=== PATIENT | female | born 1985 | race African-American/Black ===

== ENCOUNTER 2020-01-16 16:55 | Emergency (ER) | payer MEDICAID ==
[~2020-01-16] VITALS: Ht 167.6 cm; Wt 125.0 kg
[2020-01-16 17:52] VITALS: BP 130/85
[2020-01-16] MEDS ORDERED: ALBU2.5V8 IH (18:45)
--- NOTE | 2020-01-16 18:45 | PHYS DOC ---
Past Medical History Past Medical History: No Pertinent History Additional Past Medical Histor: ADHD (MELPK APRN) Past Surgical History: Other Additional Past Surgical Histo: CSECTION X2 (MELEPK Gasca APRN) Smoking Status: Current Every Day Smoker Alcohol Use: None (MELPK CARMEN) General Adult EDM: Chief Complaint: CHEMICAL EXPOSURE HPI: HPI: Patient is a 34 year old female who presents to the ED today complaining of chemical exposure. Patient states at 4 AM this morning she was cleaning her bathroom and mixed ammonia and bleach. She states she inhaled the fumes. She states throughout the day she has had some chest binding coughing and sore throat. Patient denies any shortness of breath. Denies any history of asthma or COPD. (MELEPK Gasca APRN) Review of Systems: Review of Systems: Constitutional: Denies fever or chills. [] Eyes: Denies change in visual acuity. [] HENT: Reports throat pain. Denies nasal congestion Respiratory: Reports chemical inhalation. Denies cough or shortness of tre ath. [] Cardiovascular: Denies chest pain or edema. [] GI: Denies abdominal pain, nausea, vomiting, bloody stools or diarrhea. [] : Denies dysuria. [] Musculoskeletal: Denies back pain or joint pain. [] Integument: Denies rash. [] Neurologic: Denies headache, focal weakness or sensory changes. [] Psychiatric: Denies depression or anxiety. [] (PK LEAL APRN) Heart Score: Risk Factors: Risk Factors: DM, Current or recent (<one month) smoker, HTN, HLP, family history of CAD, obesity. Risk Scores: Score 0 - 3: 2.5% MACE over next 6 weeks - Discharge Home Score 4 - 6: 20.3% MACE over next 6 weeks - Admit for Clinical Observation Score 7 - 10: 72.7% MACE over next 6 weeks - Early Invasive Strategies (PK LEAL APRN) Physical Exam: PE: Constitutional: Well developed, well nourished, no acute distress, non-toxic appearance. [] HENT: Normocephalic, atraumatic, bilateral external ears normal, oropharynx moist, no oral exudates, nose normal. [] Eyes: PERRLA, EOMI, conjunctiva normal, no discharge. [] Neck: Normal range of motion, no tenderness, supple, no stridor. [] Cardiovascular:Heart rate regular rhythm, no murmur [] Lungs & Thorax: Bilateral breath sounds clear to auscultation [] Abdomen: Bowel sounds normal, soft, no tenderness, no masses, no pulsatile masses. [] Skin: Warm, dry, no erythema, no rash. [] Back: No tenderness, no CVA tenderness. [] Extremities: No tenderness, no cyanosis, no clubbing, ROM intact, no edema. [] Neurologic: Alert and oriented X 3, normal motor function, normal sensory function, no focal deficits noted. [] Psychologic: Affect normal, judgement normal, mood normal. [] (PK LEAL APRN) Current Patient Data: Vital Signs: Vital Signs Date Time Temp Pulse Resp B/P (MAP) Pulse Ox O2 Delivery O2 Flow Rate FiO2 01/16/20 17:52 98.4 88 130/85 (100) 99 Room Air 98.4 01/16/20 17:50 20 (PK LEAL APRN) EKG: EKG: [] (PK LEAL APRN) Radiology/Procedures: Radiology/Procedures: [] (PK LEAL APRN) Course & Med Decision Making: Course & Med Decision Making Pertinent Labs and Imaging studies reviewed. (See chart for details) This is a 34-year-old female patient presenting to the ED today to be evaluated after chemical exposure/inhalation. Patient was cleaning her bathroom this morning with ammonia and bleach and states she inhaled the fumes making her have chest burning sensation, sore throat. In the ED her O2 sats are 99% on room air. Blood pressure 123/80, temperature 98.4, heart rate 89 with respiration of 18. Patient is in no distress. She was reassured and discharged home. She was provided return precautions. (PK LEAL APRN) Dragon Disclaimer: Dragon Disclaimer: This electronic medical record was generated, in whole or in part, using a voice recognition dictation system. (PK LEAL APRN) Departure Departure Impression: Primary Impression: Exposure to chemical inhalation Disposition: HOME, SELF-CARE Condition: STABLE Referrals: NO PCP (PCP) follow up with your doctor in 1-2 weeks Patient Instructions: Chemical Inhalation Additional Instructions: Use breathing treatments as needed. Follow-up with your own doctor in 1 to 2 weeks. Scripts Albuterol Sulfate (Proair Hfa) 8.5 Gm Hfa.aer.ad 2 PUFF IH PRN Q4-6HRS PRN for wheezing for 21 Days, #1 INHALER 0 Refills Prov: PK LEAL APRN 01/16/20 Justicifation of Admission Dx: Justifications for Admission: Justification of Admission Dx: N/A (PK LEAL APRN) Attending Signature Attending Signature I was personally available for consult in the emergency department. I have reviewed the chart and agree with the documentation as recorded by the SYLVESTER including the assessment, treatment plan and disposition. (RAFAT GAN DO) PK LEAL APRN Jan 16, 2020 18:45 RAFAT GAN DO Jan 17, 2020 06:37
== END 2020-01-16 19:19 | disposition home or self-care (01) ==
LOC: ER 16:55
DX: J02.9 Acute pharyngitis, unspecified (principal); R05 Cough; F90.9 Attention-deficit hyperactivity disorder, unspecified type; F17.200 Nicotine dependence, unspecified, uncomplicated; Z98.890 Other specified postprocedural states; Z77.098 Contact with and (suspected) exposure to other hazardous, chiefly nonmedicinal, chemicals
CPT/HCPCS: 99283